=== PATIENT | male | born 1945 | race Caucasian/White ===

== ENCOUNTER 2020-04-10 18:10 | Inpatient (IN) ==
[2020-04-10] MEDS ORDERED: LABETALOL 20 MG/4 ML SYRINGE IV STA (19:46)
[2020-04-10 20:07] LABS: Basophils # 0.1 10*3/uL (0.0-0.2); Basophils % 0.7 % (0.0-0.8); Eosinophils # 0.2 10*3/uL (0.0-0.87); Hematocrit 41.3 VOL% (42.0-52.0); Hemoglobin 14.3 GM/DL (14.0-18.0); Immature Granulocytes % 0.4 %; Immature Granulocytes Absolute 0.03 #; Lymphocytes # 2.5 10*3/uL (1.4-4.0); Lymphocytes % 31.3 % (21.2-54.2); Mean Corpuscular HGB Conc 34.6 GM/DL (32-36); Mean Corpuscular Volume 91.8 FL (87-102); Mean Platelet Volume 9.6 FL (9.6-12.0); Monocytes % 7.1 % (1.7-12.7); Neutrophils % 57.5 % (38.7-73.9); Platelet Count 192 T/CUMM (130-400); White Blood Count 8.1 T/CUMM (4-12)
[2020-04-10 20:17] LABS: Alanine Aminotransferase 16 U/L (16-61); Albumin 3.8 G/DL (3.4-5.0); Alkaline Phosphatase 88 U/L (45-117); Aspartate Amino Transferase 15 U/L (0-37); Blood Urea Nitrogen 21 MG/DL (7-18); Calcium 8.5 MG/DL (8.5-10.1); Carbon Dioxide 27 MMOL/L (21-32); Estimated Glom Filtration Rate 66 ML/MIN; Glucose 95 MG/DL (74-106); Osmolality,Calculated 279.5 MOS/KG (273-304); Potassium 3.8 MMOL/L (3.5-5.1); Sodium 139 MMOL/L (136-145); Total Protein 7.1 G/DL (6.4-8.3)
[2020-04-10 20:19] LABS: PT Patient Result 10.4 SECS (9.8-11.9); Partial Thromboplastin Time 27.8 SECS (23.9-33.8)
[2020-04-10 20:26] LABS: Bilirubin,Urine Negative (Negative); Blood, Urine Small mg/dL (Negative); Glucose,Urine (UA) Negative (Negative); Ketones,Urine Negative (Negative); Mucus,Urine Occasional /LPF (Occasional); Nitrite,Urine Negative (Negative); Protein,Urine Negative; RBC,Urine 2 /HPF (0-4); Urine Appearance CLEAR (Clear); Urine Color Straw (Yellow); Urine Urobilinogen < 2.0 EU/DL (0.2-1.0); WBC,Urine 1 /HPF (0-6)
[2020-04-10 20:48] LABS: Barbiturates Screen,Urine Negative (Negative); Benzodiazepines Screen,Urine Negative (Negative); Cannabinoid Screen,Urine Negative (Negative); Opiate Screen,Urine Negative (Negative); Phencyclidine Screen,Urine Negative (Negative)
[2020-04-10] MEDS ORDERED: DEXTROSE 50% 25 GM/50 ML VIAL IV PRN (22:36)
[2020-04-10] MEDS ORDERED: ALUMINUM/MAGNES/SIMETH MAX STR 30 ML UDCUP PO PRN (22:36)
[2020-04-10] MEDS ORDERED: BISACODYL 5 MG TABLET PO PRN (22:36)
[2020-04-10] MEDS ORDERED: GLUCAGON 1 MG VIAL IM PRN (22:36)
[2020-04-10] MEDS ORDERED: ACETAMINOPHEN 325 MG TABLET PO PRN (22:36)
[2020-04-10] MEDS ORDERED: ZALEPLON 5 MG CAPSULE PO PRN (22:36)
[2020-04-10] MEDS ORDERED: ONDANSETRON 4 MG/2 ML VIAL IV PRN (22:36)
[2020-04-10] MEDS ORDERED: guaiFENesin/DM ER 600-30 MG TABLET PO PRN (22:36)
[2020-04-10] MEDS ORDERED: NICOTINE 21 MG/24 HR PATCH TRANSDERM PRN (22:36)
[2020-04-10] MEDS ORDERED: diphenhydrAMINE CAP 25 MG CAPSULE PO PRN (22:36)
[2020-04-10] MEDS ORDERED: amLODIPine 10 MG TABLET PO ONE (22:37)
[2020-04-10] MEDS: SODIUM CHLORIDE 0.9% 1,000 ML IV SCH (23:45)
[2020-04-11] MEDS: hydrALAZINE 20 MG/1 ML VIAL IV PRN (01:53)
[2020-04-11] MEDS: PANTOPRAZOLE 40 MG TABLET PO SCH (08:48)
[2020-04-11] MEDS: amLODIPine 10 MG TABLET PO SCH (08:48)
[2020-04-11] MEDS: ENOXAPARIN 40 MG/0.4 ML SYRINGE SUBCUT SCH (08:48)
[2020-04-11] MEDS: SODIUM CHLORIDE 0.9% 1,000 ML IV SCH (16:54)
[2020-04-12] MEDS: SODIUM CHLORIDE 0.9% 1,000 ML IV SCH ×2 (06:07→22:34)
[2020-04-12] MEDS: PANTOPRAZOLE 40 MG TABLET PO SCH (08:57)
[2020-04-12] MEDS: amLODIPine 10 MG TABLET PO SCH (08:57)
[2020-04-12] MEDS: ENOXAPARIN 40 MG/0.4 ML SYRINGE SUBCUT SCH (08:57)
[2020-04-12] MEDS: hydrALAZINE 20 MG/1 ML VIAL IV PRN (08:58)
[2020-04-12] MEDS: OXYBUTYNIN 5 MG TABLET PO PRN (09:53)
[2020-04-12] MEDS: TAMSULOSIN 0.4 MG CAPSULE PO SCH (11:15)
[2020-04-12] MEDS: ASPIRIN EC 81 MG TABLET PO SCH (16:17)
[2020-04-12] MEDS: ATORVASTATIN 40 MG TABLET PO SCH (22:32)
[2020-04-13] MEDS: TAMSULOSIN 0.4 MG CAPSULE PO SCH (08:39)
[2020-04-13] MEDS: ENOXAPARIN 40 MG/0.4 ML SYRINGE SUBCUT SCH (08:39)
[2020-04-13] MEDS: ASPIRIN EC 81 MG TABLET PO SCH (08:39)
[2020-04-13] MEDS: PANTOPRAZOLE 40 MG TABLET PO SCH (08:40)
[2020-04-13] MEDS: amLODIPine 10 MG TABLET PO SCH (08:40)
[2020-04-13] MEDS: OXYBUTYNIN 5 MG TABLET PO PRN (09:59)
[2020-04-13] MEDS ORDERED: BENZOCAINE/MENTHOL LOZENGE 18/BOX PO PRN (12:17)
[2020-04-13] MEDS: SODIUM CHLORIDE 0.9% 1,000 ML IV SCH (12:57)
[2020-04-13] MEDS: ATORVASTATIN 40 MG TABLET PO SCH (20:40)
[2020-04-14] MEDS: SODIUM CHLORIDE 0.9% 1,000 ML IV SCH ×3 (03:31→22:58)
[2020-04-14 05:11] LABS: Basophils % 0.5 % (0.0-0.8); Eosinophils # 0.3 10*3/uL (0.0-0.87); Eosinophils % 3.5 % (0.00-10.9); Hematocrit 40.7 VOL% (42.0-52.0); Hemoglobin 14.5 GM/DL (14.0-18.0); Immature Granulocytes % 0.1 %; Immature Granulocytes Absolute 0.01 #; Lymphocytes # 2.2 10*3/uL (1.4-4.0); Lymphocytes % 28.2 % (21.2-54.2); Mean Corpuscular HGB Conc 35.6 GM/DL (32-36); Mean Corpuscular Volume 88.7 FL (87-102); Mean Platelet Volume 9.6 FL (9.6-12.0); Monocytes % 7.9 % (1.7-12.7); Neutrophils % 59.8 % (38.7-73.9); Platelet Count 200 T/CUMM (130-400); Red Blood Count 4.59 MC/CUMM (3.8-5.5); Red Cell Distribution Width 12.7 % (9.3-17.3); White Blood Count 7.7 T/CUMM (4-12)
[2020-04-14 05:11] LABS: Calcium 8.7 MG/DL (8.5-10.1); Osmolality,Calculated 280.4 MOS/KG (273-304); Potassium 3.6 MMOL/L (3.5-5.1)
[2020-04-14] MEDS: TAMSULOSIN 0.4 MG CAPSULE PO SCH (10:01)
[2020-04-14] MEDS: PANTOPRAZOLE 40 MG TABLET PO SCH (10:01)
[2020-04-14] MEDS: amLODIPine 10 MG TABLET PO SCH (10:02)
[2020-04-14] MEDS: ENOXAPARIN 40 MG/0.4 ML SYRINGE SUBCUT SCH (10:02)
[2020-04-14] MEDS: ASPIRIN EC 81 MG TABLET PO SCH (10:02)
[2020-04-14] MEDS: cycloSPORINE OPH EMUL 1 VIAL BOTH EYES SCH (20:25)
[2020-04-14] MEDS: ATORVASTATIN 40 MG TABLET PO SCH (20:25)
[2020-04-15] MEDS ORDERED: MELOXICAM 7.5 MG TABLET PO SCH (09:00)
[2020-04-15] MEDS: ASPIRIN EC 81 MG TABLET PO SCH (09:54)
[2020-04-15] MEDS: ENOXAPARIN 40 MG/0.4 ML SYRINGE SUBCUT SCH (09:54)
[2020-04-15] MEDS: amLODIPine 10 MG TABLET PO SCH (09:55)
[2020-04-15] MEDS: PANTOPRAZOLE 40 MG TABLET PO SCH (09:55)
[2020-04-15] MEDS: cycloSPORINE OPH EMUL 1 VIAL BOTH EYES SCH (09:55)
[2020-04-15] MEDS: TAMSULOSIN 0.4 MG CAPSULE PO SCH (09:55)
[2020-04-15 11:19] VITALS: BP 154/84
== END 2020-04-15 14:30 | DRG 65 ==
LOC: N.EDINP 18:10 → N.ED 18:10 → N.3E 04-11 00:42 → SUATTDRO 04-11 12:24
PROVIDERS: ADMIT Internal Medicine; ATTEND Family Medicine

== ENCOUNTER 2021-04-19 00:07 | Inpatient (IN) ==
[2021-04-19 04:42] LABS: Basophils % 0.6 % (0.0-0.8); Eosinophils # 0.2 10*3/uL (0.0-0.87); Eosinophils % 4.8 % (0.00-10.9); Hematocrit 41.2 VOL% (42.0-52.0); Hemoglobin 14.1 GM/DL (14.0-18.0); Immature Granulocytes % 0.2 %; Immature Granulocytes Absolute 0.01 #; Lymphocytes # 1.7 10*3/uL (1.4-4.0); Lymphocytes % 32.9 % (21.2-54.2); Mean Corpuscular HGB Conc 34.2 GM/DL (32-36); Mean Corpuscular Volume 87.7 FL (87-102); Mean Platelet Volume 9.8 FL (9.6-12.0); Neutrophils % 52.5 % (38.7-73.9); Platelet Count 198 T/CUMM (130-400); Red Cell Distribution Width 13.3 % (9.3-17.3)
[2021-04-19 05:05] LABS: Albumin 3.6 G/DL (3.4-5.0); Bilirubin,Total 0.5 MG/DL (0.20-1.00); Calcium 8.8 MG/DL (8.5-10.1); Osmolality,Calculated 281.5 MOS/KG (273-304); Potassium 3.6 MMOL/L (3.5-5.1); Total Protein 6.8 G/DL (6.4-8.2)
[2021-04-19] MEDS ORDERED: cefTRIAXone 1,000 MG in SODIUM CHLORIDE 0.9% 100 ML IV STA (05:52)
[2021-04-19] MEDS ORDERED: DEXAMETHASONE 4 MG/1 ML VIAL IV STA (05:52)
[2021-04-19 06:12] LABS: Bilirubin,Urine Negative (Negative); Blood, Urine Negative (Negative); Glucose,Urine (UA) Negative (Negative); Hyaline Casts,Urine 4 /LPF (0-3); Ketones,Urine 5 mg/dL (Negative); Mucus,Urine Occasional /LPF (Occasional); Nitrite,Urine Negative (Negative); Protein,Urine Negative; RBC,Urine 1 /HPF (0-4); Urine Appearance CLEAR (Clear); Urine Color Yellow (Yellow)
[2021-04-19 06:13] LABS: ABG Base Excess 1.2 MMOL/L (-2.5-2.5); ABG HCO3 25.4 MMOL/L (20-26); ABG Oxygen Saturation 95.8 % (95-100); ABG PCO2 39.1 MM HG (35-48); ABG PH 7.423 (7.35-7.45); ABG PO2 78.8 MM HG (80-95); ABG TCO2 22.1 MMOL/L (23-27)
[2021-04-19] MEDS ORDERED: ACETAMINOPHEN 325 MG TABLET PO PRN (06:33)
[2021-04-19] MEDS ORDERED: DOCUSATE SODIUM 100 MG CAPSULE PO PRN (06:33)
[2021-04-19] MEDS ORDERED: DEXTROSE 10% 25 GM/250 ML BAG IV PRN (06:33)
[2021-04-19] MEDS ORDERED: GLUCAGON 1 MG VIAL IM PRN (06:33)
[2021-04-19 07:37] LABS: Barbiturates Screen,Urine Negative (Negative); Benzodiazepines Screen,Urine Negative (Negative); Cannabinoid Screen,Urine Negative (Negative); Opiate Screen,Urine Negative (Negative); Phencyclidine Screen,Urine Negative (Negative)
[2021-04-19] MEDS: LACTATED RINGERS 1,000 ML IV SCH (09:30)
[2021-04-19] MEDS: ZINC SULFATE 220 MG CAPSULE PO SCH (09:50)
[2021-04-19] MEDS: ENOXAPARIN 40 MG/0.4 ML SYRINGE SUBCUT SCH (09:50)
[2021-04-19] MEDS: CHOLECALCIFEROL 1,000 UNIT TABLET PO SCH (09:50)
[2021-04-19] MEDS: TAMSULOSIN 0.4 MG CAPSULE PO SCH ×2 (09:50→21:10)
[2021-04-19] MEDS: ASCORBIC ACID 500 MG TABLET PO SCH ×2 (09:50→21:10)
[2021-04-19] MEDS: amLODIPine 10 MG TABLET PO SCH (09:50)
[2021-04-19] MEDS: ASPIRIN CHEW 81 MG TABLET PO SCH (09:50)
[2021-04-19] MEDS: PANTOPRAZOLE 40 MG TABLET PO SCH (09:50)
[2021-04-19] MEDS: ATORVASTATIN 40 MG TABLET PO SCH (21:10)
[2021-04-20 05:31] LABS: Basophils % 0.5 % (0.0-0.8); Eosinophils # 0.1 10*3/uL (0.0-0.87); Eosinophils % 1.1 % (0.00-10.9); Hemoglobin 14.9 GM/DL (14.0-18.0); Immature Granulocytes % 0.2 %; Immature Granulocytes Absolute 0.01 #; Lymphocytes # 2.5 10*3/uL (1.4-4.0); Lymphocytes % 40.7 % (21.2-54.2); Mean Corpuscular HGB Conc 34.7 GM/DL (32-36); Mean Corpuscular Volume 87.9 FL (87-102); Mean Platelet Volume 9.7 FL (9.6-12.0); Monocytes % 6.7 % (1.7-12.7); Neutrophils % 50.8 % (38.7-73.9); Platelet Count 222 T/CUMM (130-400); Red Blood Count 4.89 MC/CUMM (3.8-5.5); Red Cell Distribution Width 12.9 % (9.3-17.3); White Blood Count 6.1 T/CUMM (4-12)
[2021-04-20 06:34] LABS: Albumin 3.6 G/DL (3.4-5.0); Bilirubin,Total 0.5 MG/DL (0.20-1.00); Calcium 8.7 MG/DL (8.5-10.1); Osmolality,Calculated 280.4 MOS/KG (273-304); Potassium 3.6 MMOL/L (3.5-5.1); Risk Ratio 4.67; Thyroid Stimulating Hormone 2.21 uIU/ml (0.358-3.74); Total Protein 7.7 G/DL (6.4-8.2); VLDL Cholesterol 21.6 MG/DL
[2021-04-20] MEDS ORDERED: DEXAMETHASONE 4 MG TABLET PO SCH (09:00)
[2021-04-20] MEDS: cefTRIAXone 1,000 MG in SODIUM CHLORIDE 0.9% 100 ML IV SCH (09:31)
[2021-04-20] MEDS: ENOXAPARIN 40 MG/0.4 ML SYRINGE SUBCUT SCH (09:32)
[2021-04-20] MEDS: ASCORBIC ACID 500 MG TABLET PO SCH ×2 (09:32→20:59)
[2021-04-20] MEDS: ASPIRIN CHEW 81 MG TABLET PO SCH (09:32)
[2021-04-20] MEDS: ZINC SULFATE 220 MG CAPSULE PO SCH (09:32)
[2021-04-20] MEDS: PANTOPRAZOLE 40 MG TABLET PO SCH (09:33)
[2021-04-20] MEDS: TAMSULOSIN 0.4 MG CAPSULE PO SCH ×2 (09:33→20:59)
[2021-04-20] MEDS: amLODIPine 10 MG TABLET PO SCH (09:33)
[2021-04-20] MEDS: CHOLECALCIFEROL 1,000 UNIT TABLET PO SCH (09:33)
[2021-04-20] MEDS: LACTATED RINGERS 1,000 ML IV SCH ×3 (12:27→19:37)
[2021-04-20] MEDS ORDERED: HALOPERIDOL 5 MG/ML AMP IM ONE (20:27)
[2021-04-20] MEDS: ATORVASTATIN 40 MG TABLET PO SCH (20:59)
[2021-04-21 05:02] LABS: Basophils % 0.4 % (0.0-0.8); Eosinophils % 0.2 % (0.00-10.9); Hemoglobin 13.4 GM/DL (14.0-18.0); Immature Granulocytes % 0.2 %; Immature Granulocytes Absolute 0.01 #; Lymphocytes # 1.5 10*3/uL (1.4-4.0); Lymphocytes % 31.4 % (21.2-54.2); Mean Corpuscular HGB Conc 34.4 GM/DL (32-36); Mean Corpuscular Volume 87.4 FL (87-102); Mean Platelet Volume 9.7 FL (9.6-12.0); Monocytes % 8.5 % (1.7-12.7); Neutrophils % 59.3 % (38.7-73.9); Platelet Count 197 T/CUMM (130-400); Red Blood Count 4.46 MC/CUMM (3.8-5.5); Red Cell Distribution Width 12.8 % (9.3-17.3); White Blood Count 4.8 T/CUMM (4-12)
[2021-04-21] MEDS: LACTATED RINGERS 1,000 ML IV SCH ×3 (05:38→21:04)
[2021-04-21 05:56] LABS: Albumin 3.4 G/DL (3.4-5.0); Bilirubin,Total 0.5 MG/DL (0.20-1.00); Calcium 9.1 MG/DL (8.5-10.1); Osmolality,Calculated 283.3 MOS/KG (273-304); Potassium 3.7 MMOL/L (3.5-5.1); Total Protein 7.1 G/DL (6.4-8.2)
[2021-04-21] MEDS: HALOPERIDOL 1 MG TABLET PO PRN ×3 (09:34→21:04)
[2021-04-21] MEDS: ENOXAPARIN 40 MG/0.4 ML SYRINGE SUBCUT SCH (09:35)
[2021-04-21] MEDS: ASPIRIN CHEW 81 MG TABLET PO SCH (09:35)
[2021-04-21] MEDS: DEXAMETHASONE 0.5 MG TABLET PO SCH ×2 (09:35→21:03)
[2021-04-21] MEDS: PANTOPRAZOLE 40 MG TABLET PO SCH (09:35)
[2021-04-21] MEDS: ASCORBIC ACID 500 MG TABLET PO SCH ×2 (09:35→21:04)
[2021-04-21] MEDS: TAMSULOSIN 0.4 MG CAPSULE PO SCH ×2 (09:35→21:04)
[2021-04-21] MEDS: ZINC SULFATE 220 MG CAPSULE PO SCH (09:35)
[2021-04-21] MEDS: amLODIPine 10 MG TABLET PO SCH (09:35)
[2021-04-21] MEDS: CHOLECALCIFEROL 1,000 UNIT TABLET PO SCH (09:35)
[2021-04-21] MEDS: cefTRIAXone 1,000 MG in SODIUM CHLORIDE 0.9% 100 ML IV SCH (09:36)
[2021-04-21] MEDS: ATORVASTATIN 80 MG TABLET PO SCH (21:04)
[2021-04-21] MEDS: ALBUTEROL INHALER 18 GM INH SCH ×2 (22:46→22:47)
[2021-04-22] MEDS: ALBUTEROL INHALER 18 GM INH SCH ×4 (03:17→21:30)
[2021-04-22] MEDS: LACTATED RINGERS 1,000 ML IV SCH (06:07)
[2021-04-22] MEDS: cefTRIAXone 1,000 MG in SODIUM CHLORIDE 0.9% 100 ML IV SCH (09:53)
[2021-04-22] MEDS: CLOPIDOGREL 75 MG TABLET PO SCH (09:54)
[2021-04-22] MEDS: ENOXAPARIN 40 MG/0.4 ML SYRINGE SUBCUT SCH (09:54)
[2021-04-22] MEDS: TAMSULOSIN 0.4 MG CAPSULE PO SCH ×2 (09:54→21:30)
[2021-04-22] MEDS: ASPIRIN EC 81 MG TABLET PO SCH (09:54)
[2021-04-22] MEDS: HALOPERIDOL 1 MG TABLET PO PRN ×2 (09:54→14:50)
[2021-04-22] MEDS: CHOLECALCIFEROL 1,000 UNIT TABLET PO SCH (09:54)
[2021-04-22] MEDS: DEXAMETHASONE 0.5 MG TABLET PO SCH (09:54)
[2021-04-22] MEDS: ASCORBIC ACID 500 MG TABLET PO SCH ×2 (09:54→21:30)
[2021-04-22] MEDS: PANTOPRAZOLE 40 MG TABLET PO SCH (09:55)
[2021-04-22] MEDS: amLODIPine 10 MG TABLET PO SCH (09:55)
[2021-04-22] MEDS: ZINC SULFATE 220 MG CAPSULE PO SCH (14:50)
[2021-04-22] MEDS ORDERED: risperiDONE 1 MG TABLET PO SCH (18:00)
[2021-04-22] MEDS ORDERED: DEXAMETHASONE 0.5 MG TABLET PO SCH (21:00)
[2021-04-22] MEDS: ATORVASTATIN 80 MG TABLET PO SCH (21:30)
[2021-04-23] MEDS: ALBUTEROL INHALER 18 GM INH SCH ×4 (02:02→20:58)
[2021-04-23] MEDS: amLODIPine 10 MG TABLET PO SCH (09:45)
[2021-04-23] MEDS: PANTOPRAZOLE 40 MG TABLET PO SCH (09:45)
[2021-04-23] MEDS: ENOXAPARIN 40 MG/0.4 ML SYRINGE SUBCUT SCH (09:45)
[2021-04-23] MEDS: CHOLECALCIFEROL 1,000 UNIT TABLET PO SCH (09:45)
[2021-04-23] MEDS: ASCORBIC ACID 500 MG TABLET PO SCH ×2 (09:45→20:58)
[2021-04-23] MEDS: ASPIRIN EC 81 MG TABLET PO SCH (09:46)
[2021-04-23] MEDS: TAMSULOSIN 0.4 MG CAPSULE PO SCH ×2 (09:46→20:58)
[2021-04-23] MEDS: ZINC SULFATE 220 MG CAPSULE PO SCH (09:46)
[2021-04-23] MEDS: CLOPIDOGREL 75 MG TABLET PO SCH (09:46)
[2021-04-23] MEDS: risperiDONE 0.5 MG TABLET PO SCH (09:46)
[2021-04-23] MEDS: OXYBUTYNIN 5 MG TABLET PO SCH ×2 (16:58→20:58)
[2021-04-23] MEDS: ATORVASTATIN 80 MG TABLET PO SCH (20:58)
[2021-04-24] MEDS: ALBUTEROL INHALER 18 GM INH SCH ×4 (02:26→22:44)
[2021-04-24] MEDS ORDERED: lisinopriL 20 MG TABLET PO SCH (09:00)
[2021-04-24] MEDS: ASPIRIN EC 81 MG TABLET PO SCH (09:42)
[2021-04-24] MEDS: ASCORBIC ACID 500 MG TABLET PO SCH ×2 (09:42→22:44)
[2021-04-24] MEDS: ZINC SULFATE 220 MG CAPSULE PO SCH (09:42)
[2021-04-24] MEDS: risperiDONE 0.5 MG TABLET PO SCH (09:42)
[2021-04-24] MEDS: ENOXAPARIN 40 MG/0.4 ML SYRINGE SUBCUT SCH (09:42)
[2021-04-24] MEDS: TAMSULOSIN 0.4 MG CAPSULE PO SCH ×2 (09:42→22:45)
[2021-04-24] MEDS: PANTOPRAZOLE 40 MG TABLET PO SCH (09:43)
[2021-04-24] MEDS: OXYBUTYNIN 5 MG TABLET PO SCH ×3 (09:43→22:44)
[2021-04-24] MEDS: amLODIPine 10 MG TABLET PO SCH (09:43)
[2021-04-24] MEDS: CLOPIDOGREL 75 MG TABLET PO SCH (09:43)
[2021-04-24] MEDS: CHOLECALCIFEROL 1,000 UNIT TABLET PO SCH (09:52)
[2021-04-24] MEDS ORDERED: TUBERCULIN SKIN TEST 0.1 ML SYRINGE INTRADERM ONE (15:00)
[2021-04-24] MEDS ORDERED: risperiDONE 1 MG TABLET PO SCH (18:00)
[2021-04-24] MEDS: ATORVASTATIN 80 MG TABLET PO SCH (22:44)
[2021-04-25] MEDS: ALBUTEROL INHALER 18 GM INH SCH ×4 (01:14→21:14)
[2021-04-25 06:02] LABS: Basophils % 0.4 % (0.0-0.8); Eosinophils # 0.1 10*3/uL (0.0-0.87); Eosinophils % 1.6 % (0.00-10.9); Hemoglobin 14.2 GM/DL (14.0-18.0); Immature Granulocytes % 0.4 %; Immature Granulocytes Absolute 0.03 #; Lymphocytes # 2.6 10*3/uL (1.4-4.0); Lymphocytes % 30.3 % (21.2-54.2); Mean Corpuscular HGB Conc 33.8 GM/DL (32-36); Mean Corpuscular Volume 88.4 FL (87-102); Mean Platelet Volume 9.8 FL (9.6-12.0); Monocytes % 8.6 % (1.7-12.7); Neutrophils % 58.7 % (38.7-73.9); Platelet Count 202 T/CUMM (130-400); Red Blood Count 4.75 MC/CUMM (3.8-5.5); Red Cell Distribution Width 12.8 % (9.3-17.3); White Blood Count 8.6 T/CUMM (4-12)
[2021-04-25 06:29] LABS: Calcium 8.9 MG/DL (8.5-10.1); Osmolality,Calculated 288.3 MOS/KG (273-304); Potassium 4.3 MMOL/L (3.5-5.1)
[2021-04-25] MEDS ORDERED: amLODIPine 5 MG TABLET PO SCH (09:00)
[2021-04-25] MEDS ORDERED: lisinopriL 10 MG TABLET PO SCH (09:00)
[2021-04-25] MEDS: ASPIRIN EC 81 MG TABLET PO SCH (09:56)
[2021-04-25] MEDS: ZINC SULFATE 220 MG CAPSULE PO SCH (09:56)
[2021-04-25] MEDS: ASCORBIC ACID 500 MG TABLET PO SCH ×2 (09:56→20:52)
[2021-04-25] MEDS: risperiDONE 0.5 MG TABLET PO SCH (09:56)
[2021-04-25] MEDS: PANTOPRAZOLE 40 MG TABLET PO SCH (09:56)
[2021-04-25] MEDS: CHOLECALCIFEROL 1,000 UNIT TABLET PO SCH (09:56)
[2021-04-25] MEDS: CLOPIDOGREL 75 MG TABLET PO SCH (09:57)
[2021-04-25] MEDS: TAMSULOSIN 0.4 MG CAPSULE PO SCH ×2 (09:57→20:52)
[2021-04-25] MEDS: OXYBUTYNIN 5 MG TABLET PO SCH ×3 (09:57→20:52)
[2021-04-25] MEDS: ENOXAPARIN 40 MG/0.4 ML SYRINGE SUBCUT SCH (10:01)
[2021-04-25] MEDS: ATORVASTATIN 80 MG TABLET PO SCH (20:52)
[2021-04-25] MEDS ORDERED: DEXAMETHASONE 0.5 MG TABLET PO SCH (21:00)
[2021-04-26] MEDS: ALBUTEROL INHALER 18 GM INH SCH ×4 (02:31→21:18)
[2021-04-26 06:48] LABS: Basophils % 0.4 % (0.0-0.8); Eosinophils # 0.1 10*3/uL (0.0-0.87); Eosinophils % 1.3 % (0.00-10.9); Hemoglobin 14.2 GM/DL (14.0-18.0); Immature Granulocytes % 0.5 %; Immature Granulocytes Absolute 0.05 #; Lymphocytes # 2.1 10*3/uL (1.4-4.0); Lymphocytes % 21.4 % (21.2-54.2); Mean Corpuscular HGB Conc 34.6 GM/DL (32-36); Mean Platelet Volume 9.6 FL (9.6-12.0); Monocytes % 8.3 % (1.7-12.7); Neutrophils % 68.1 % (38.7-73.9); Platelet Count 217 T/CUMM (130-400); Red Blood Count 4.71 MC/CUMM (3.8-5.5); Red Cell Distribution Width 12.8 % (9.3-17.3); White Blood Count 9.6 T/CUMM (4-12)
[2021-04-26 07:13] LABS: Calcium 8.8 MG/DL (8.5-10.1); Osmolality,Calculated 290.3 MOS/KG (273-304); Potassium 3.3 MMOL/L (3.5-5.1)
[2021-04-26] MEDS: OXYBUTYNIN 5 MG TABLET PO SCH ×3 (10:02→21:18)
[2021-04-26] MEDS: CHOLECALCIFEROL 1,000 UNIT TABLET PO SCH (10:02)
[2021-04-26] MEDS: ZINC SULFATE 220 MG CAPSULE PO SCH (10:02)
[2021-04-26] MEDS: ASCORBIC ACID 500 MG TABLET PO SCH ×2 (10:02→21:18)
[2021-04-26] MEDS: TAMSULOSIN 0.4 MG CAPSULE PO SCH ×2 (10:02→21:18)
[2021-04-26] MEDS: ASPIRIN EC 81 MG TABLET PO SCH (10:02)
[2021-04-26] MEDS: PANTOPRAZOLE 40 MG TABLET PO SCH (10:03)
[2021-04-26] MEDS: CLOPIDOGREL 75 MG TABLET PO SCH (10:03)
[2021-04-26] MEDS: ENOXAPARIN 40 MG/0.4 ML SYRINGE SUBCUT SCH (10:07)
[2021-04-26] MEDS: POTASSIUM CHLORIDE RIDER 10 MEQ/100 ML PREMIX IV SCH ×3 (16:37→19:09)
[2021-04-26] MEDS: ATORVASTATIN 80 MG TABLET PO SCH (21:18)
[2021-04-27] MEDS: ALBUTEROL INHALER 18 GM INH SCH ×2 (03:17→07:00)
[2021-04-27 05:51] LABS: Osmolality,Calculated 289.3 MOS/KG (273-304); Potassium 4.3 MMOL/L (3.5-5.1)
[2021-04-27] MEDS: CLOPIDOGREL 75 MG TABLET PO SCH (08:35)
[2021-04-27] MEDS: ENOXAPARIN 40 MG/0.4 ML SYRINGE SUBCUT SCH (08:35)
[2021-04-27] MEDS: ASPIRIN EC 81 MG TABLET PO SCH (08:35)
[2021-04-27] MEDS: TAMSULOSIN 0.4 MG CAPSULE PO SCH (08:35)
[2021-04-27] MEDS: ASCORBIC ACID 500 MG TABLET PO SCH (08:35)
[2021-04-27] MEDS: ZINC SULFATE 220 MG CAPSULE PO SCH (08:35)
[2021-04-27] MEDS: CHOLECALCIFEROL 1,000 UNIT TABLET PO SCH (08:35)
[2021-04-27] MEDS: PANTOPRAZOLE 40 MG TABLET PO SCH (08:35)
[2021-04-27] MEDS: OXYBUTYNIN 5 MG TABLET PO SCH (08:35)
[2021-04-27 12:23] VITALS: BP 137/80
== END 2021-04-27 15:05 | disposition home or self-care (01) | DRG 64 ==
LOC: EDBD → SUATTDRO → EDUNIT# → N.EDINP 00:07 → N.ED 00:07 → N.5E 12:11 → SUATTDRO 04-20 08:46 → N.5E 04-20 13:55
PROVIDERS: ADMIT Internal Medicine; ATTEND Internal Medicine